=== PATIENT | female | born 1965 | race African-American/Black ===

== ENCOUNTER 2023-07-27 14:52 | Outpatient (AMB) | payer OTHER, SELFPAY ==
[2023-07-27 14:53] VITALS: BP 120/80; PULSE 80; TEMP 36.4; O2SAT 95; BMI 29.7
--- NOTE | 2023-07-27 14:53 | MHC.OFFWIV ---
Intake Vital Signs 07/27/23 14:53 Height 5 ft 6 in Weight 184 lb BMI 29.7 BP 120/80 Blood Pressure Location Lt brachial Position Sitting Pulse 80 Pulse Source Pulse Oximeter Temp 97.5 F Temp Source Temporal Artery Scan Pulse Oximetry (%) 95 Oxygen Delivery Method Room Air Intake Visit Reasons: EP fainted today hit the back of head Intake Note: pt is here today for fainted hit head started today Patient Tobacco Use Status: Never used Tobacco Allergies No Known Allergies Allergy (Verified 07/27/23 14:55) Do you need a note to return to daycare/school/sports/work: Yes HPI HPI Comments History of Present Illness Details The patient presents to urgent care for evaluation after a syncopal event. 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 She then started to feel nauseous and like something was wrong but she could not identify the feeling. She leaned against a metal fence. She was talking to a friend who told her after the fact that her head started to law to 1 side. Her friend reported that she slowly crumpled to the ground the friend cradled her head so she did not hit her head hard on the ground. She regained consciousness immediately and asked why she was on the ground. She did not have any chest pain or shortness of breath prior to the incident. No recent illness. No cardiac issues. Denies leg swelling. No prior history of syncope in the past. [facility], [facility]–1983 Social History Patient Tobacco Use Status: Never used Tobacco Physical Exam Vital Signs: Last Vital Signs Temp 97.5 F 07/27/23 14:53 Pulse 80 07/27/23 14:53 BP 120/80 07/27/23 14:53 Pulse Ox 95 07/27/23 14:53 Oxygen Delivery Method Room Air 07/27/23 14:53 BMI result Body Mass Index 29.7 Const General: healthy appearing and no acute distress Orientation/consciousness: patient oriented x3 HEENT Other: Very small area of soft tissue swelling in the right posterior occipital region. No bony deformity. Minimal tenderness No posterior C-spine midline tenderness Head: Yes normal to inspection and Yes No palpable skull fracture present Eyes Corneas: corneas normal Pupils: Equal, round and reactive pupils present Chest Chest palpation & inspection: no tenderness Resp Effort & Inspection: normal respiratory effort and able to speak in complete sentences Auscultation: clear to auscultation bilaterally Cardio Palpation: normal PMI Rate: regular rate Rhythm: regular rhythm GI Palpation (GI): nontender Neuro General: patient oriented x3 Cranial nerves: Yes Equal, round and reactive pupils present Psych Appearance: grossly normal Attitude: cooperative Assessment & Plan Assessment & Plan (1) Syncope: Code(s): R55 - Syncope and collapse Plan In office fingerstick 115. EKG done. Normal sinus rhythm at 94 beats per minute. No ST T-wave changes to suggest acute ischemia, no ectopy. Patient has a follow-up appointment with PCP and plan for Holter monitor tomorrow. Given that she had the promontory symptoms I suspect more vasovagal syncope versus a cardiac etiology though certainly will need further workup and evaluation. Patient is asymptomatic at this time and I feel she can follow up as planned. If symptoms return in any way she is instructed to go to the emergency department. Coding Level of Care Code Est Pt Level 4 (71860) Diagnoses Syncope R55
== END 2023-07-27 15:53 | disposition home or self-care (01) ==
PROVIDERS: Visit Provider Emergency Medicine
DX: R55 Syncope and collapse (principal)
CPT/HCPCS: 99214

== ENCOUNTER 2023-12-28 08:55 | Outpatient (REF) | payer OTHER, SELFPAY | END 2023-12-28 08:56 | disposition home or self-care (01) | LOC: HO.HOSX 08:55 | PROVIDERS: Visit Provider Orthopaedic Surgery | DX: M25.559 Pain in unspecified hip (principal); M70.62 Trochanteric bursitis, left hip | CPT/HCPCS: 72170; 99202 ==

== ENCOUNTER 2023-12-28 11:02 | Outpatient (AMB) | payer OTHER, SELFPAY ==
[2023-12-28 11:04] VITALS: BMI 29.7
--- NOTE | 2023-12-28 11:04 | A.OFFVIS_ITS ---
Vital Signs 12/28/23 11:04 Height 5 ft 6 in Weight 184 lb BMI 29.7 Intake Visit Reasons: New Patient - Bilateral Hip Pain Intake Note: Daiana is a 58 year old female who presents today as a new patient visit with complaints of bilateral hip pain. Patient reports that the left hip is worse than the right, her pain has been ongoing for about 2 months. The pain is interm ittent, but she is unable to identify any triggers for her pain flair ups. Pain is felt in the groin and the lateral aspect of the hip. She taked Aleve for her pain PRN as well as a topical cream which is helpful. She has no other previous treatments Allergies No Known Allergies Allergy (Verified 12/28/23 11:09) HPI HPI New Patient - Bilateral Hip Pain: Details: Daiana is a 58 year old female who presents today as a new patient visit with complaints of bilateral hip pain. Patient reports that the left hip is worse than the right, her pain has been ongoing for about 2 months. The pain is intermittent, but she is unable to identify any triggers for her pain flair ups. Pain is felt in the groin and the lateral aspect of the hip. She taked Aleve for her pain PRN as well as a topical cream which is helpful. She has no other previous treatments. Currently she has no pain. 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 nl hip radiographs Assessment & Plan Assessment & Plan (1) Greater trochanteric bursitis of left hip: Code(s): M70.62 - Trochanteric bursitis, left hip Category: Medical Plan: This is a 58-year-old woman with left greater trochanteric bursitis who is cur rently asymptomatic. I reviewed the condition and some of the treatment options should pain return. At this time there is no reason she can not begin a exercise program. Orders: Orders XR pelvis 1-2V Today M25.559 - Pain in unspecified hip Coding Level of Care Code New Pt Level 3 (21463) Diagnoses Greater trochanteric bursitis of left hip M70.62
== END 2023-12-28 11:30 | disposition home or self-care (01) ==
PROVIDERS: Visit Provider Orthopaedic Surgery
DX: M70.62 Trochanteric bursitis, left hip (principal)
CPT/HCPCS: 99203

== ENCOUNTER 2024-04-08 14:09 | Outpatient (AMB) | payer OTHER, SELFPAY ==
--- NOTE | 2024-04-08 14:11 | A.OFFVIS_ITS ---
Vital Signs 04/08/24 14:28 Height 5 ft 6 in Weight 190 lb BMI 30.7 Intake Visit Reasons: New prob- B/L knee pain/arthritis Intake Note: This is a 58 year old female who presents for bilateral knee pain. She reports pain consistently with ambulation. She has not done any physical therapy for her knees, she takes aleve and uses voltarin cream for pain relief. She denies any injury. Rn Liaison Required: No Allergies No Known Allergies Allergy (Verified 04/08/24 14:30) Medication List - Last Reconciled 04/08/24 by Jenifer Johnson RN alendronate 70 mg PO QWEEK HPI HPI New prob- B/L knee pain/arthritis: Details: This is a 58-year-old woman with bilateral knee pain. She has pain in the inside of the knees and when going up and down stairs. Her primary complaint, in fact, is pain when ascending and descending stairs. She denies injury. She saw a surgeon about this about 7 years ago and was told she had [id number] arthritis. Her goal today is to no or understand if activity is going to worsened her knees as the only real problem she has a stairs and walking on flat ground does not currently bother her. 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 She has 0-125 degrees of motion bilaterally. Stable to varus and valgus stress. Tenderness to palpation medial joint line bilaterally. Crepitus with range of motion bilaterally. Retropatellar tenderness to palpation bilaterally Results Reviewed Results Reviewed: I personally reviewed relevant radiographs. Moderate medial and severe anterior compartment osteoarthritis bilaterally Assessment & Plan Assessment & Plan (1) Bilateral primary osteoarthritis of knee: Code(s): M17.0 - Bilateral primary osteoarthritis of knee Category: Medical Plan: This is a 58-year-old with bilateral knee osteoarthritis. She is very functional and her primary complaint is going up and down stairs. I do not think this would be reliably resolve with arthroplasty and do not recommend surgery. I reviewed her pathology and treatment options. I recommend activity as tolerated and lifestyle modifications for weight and working out. She expressed understanding and we will see me if her pain worsens but at this time there is no of formal intervention warranted. Orders: Orders XR knee LT 3V Today M25.562 - Pain in left knee XR knee RT 3V Today M25.561 - Pain in right knee Coding Level of Care Code Est Pt Level 3 (20212) Diagnoses Bilateral primary osteoarthritis of knee M17.0
[2024-04-08 14:28] VITALS: BMI 30.7
== END 2024-04-08 15:02 | disposition home or self-care (01) ==
PROVIDERS: Visit Provider Orthopaedic Surgery
DX: M17.0 Bilateral primary osteoarthritis of knee (principal)
CPT/HCPCS: 99213

== ENCOUNTER 2024-10-24 10:46 | Outpatient (REF) | payer OTHER, SELFPAY ==
--- NOTE | ~2024-10-24 | XR_ITS ---
EXAMINATION: XR SHOULDER, RIGHT CLINICAL INFORMATION: M25.519 - Pain in unspecified shoulder COMPARISON: None available. TECHNIQUE: Three views of the right shoulder. FINDINGS: Normal bone mineralization. No fracture, dislocation, or suspicious bone lesion. Normal alignment. The glenohumeral joint is normal. The AC joint demonstrates minimal spurring. There is a type II acromion. There are is mild undersurface spurring. The subacromial space is preserved. Remainder of the soft tissue and bony structures appear normal. XR/XR shoulder RT min 2V IMPRESSION: 1. No acute bony abnormalities of the right shoulder. 2. Normal glenohumeral joint. 3. Mild spurring of the AC joint and mild subacromial spurring present. Electronically signed by: William Castillo MD 10/24/2024 02:28 PM EDT
--- OUTSIDE RECORDS SUMMARY | 2024-10-25 10:48 | XMS_ITS | Clinical Summary ---
Author Organization [facility] Address [address] [place] [address] Phone Care Team Providers Care Merchandise Presentation Associate Name Role Phone Mike Ellison Primary Care Provider [phone] Allergies No known active allergies Medications alendronate (FOSAMAX) 70 mg tablet Take 1 tablet (70 mg total) by mouth once a week. Active cetirizine (ZyrTEC) 10 mg tablet Active calcium-vits J1-A-G6-mineral s 166.75 mg- 166.75 unit capsule Active [...] Description 10/14/2024 10:45 AM EDT Office Visit [facility] Hematology Oncology [address] [place] [address] Glen Diaz, Malignant neoplasm of central portion of left breast in female, estrogen receptor positive (CMS/HCC V24, CMS/HCC V28) (Primary Dx) 07/25/2024 Telephone [facility] [address] [place] [address] Mike Ellison PA from Last [...] Description 04/28/2025 10:00 AM EST Office Visit [facility] Hematology Oncology [address] [place] [phone] Glen Diazie, DO [address] [place] [address] Health Maintenance Due Date Last Done Comments [...] Routine 04/11/2024 10:15 AM EST Screening due IGA DEXA AXIAL SKELETON Routine 04/10/2023 11:07 AM [...] Signed Date: 04/11/2024 12:31 ET Workstation ID: [id number] Transcribed By: Self Edit Transcribed Date: 04/11/2024 [...] None Computer-aided detection was employed with the [employer] AI 3-D. TISSUE DENSITY: There are scattered [...] None Computer-aided detection was employed with the [employer] AI 3-D. TISSUE DENSITY: There are scattered [...] Signed Date: 04/11/2024 12:31 ET Workstation ID: [id number] Transcribed By: Self Edit Transcribed Date: 04/11/2024 12:23 ET us Glen Diaz DO IMG BI PROCEDURES Fin al Result * GIA DEXA AXIAL SKELETON (04/10/2023 11:07 AM EST) Anatomical Region Laterality Modality Mammography 04/10/2023 10:0 1 AM EST Narrative 04/10/2023 11:07 AM EST [facility] Diagnostic Imaging Department [address] [place] [address] Patient: DAIANA SUBRAMANIAN D.O.B./Age/Sex: 1965 57 - F Unit#: [id number] Location/Status: SPDIMAM/REG CLI [facility] Ordering Physician: GLEN DIAZ Gia Dexa Axial [...] probability of hip fracture of 0.1%. Code 42634 Dictating Physician: MICHAEL CANTOR MD Electronically Signed by: MICHAEL CANTOR MD Dic Date/Time: 04/10/23 1105 Sign date/Time: 04/10/23 110 Procedure Note Michael Cantor MD - 11/06/2023 [facility] Diagnostic Imaging Department [address] [place] [address] Patient: DAIANA SUBRAMANIAN/Age/Sex: 1965 - 57 - F Unit#: [id number] Location/Status: SPDIMAM/REG CLI Mnemonic/Ordering Site: [facility] Ordering [...] density of the femurs bilaterally is 0.977 gm/uo1zilsx is 97% of that of young normals [...] probability of hip fracture of 0.1%. Code 99492 Dictating Physician: MICHAEL CANTOR MD Electronically Signed by: MICHAEL CANTOR MD Dic Date/Time: 04/10/23 110 Sign date/Time: 04/10/23 110 us Glen Diaz [...] Relevant to Health Maintenance Insurance [employer]AN Care Teams Merchandise Presentation Associate Relationship Specialty Start Date End Date Mike Ellison PA [address] [place] [phone] PCP - General 08/15/23
--- OUTSIDE RECORDS SUMMARY | 2024-10-25 10:48 | XMS_ITS | Clinical Summary ---
Author Organization [facility] Address [address] [place] [address] Care Team Providers Care Microbiology Lab Manager Name Role Phone Mike Ellison Primary Care Provider [phone] Source Comments PLEASE NOTE, if this patient is a minor, it may be UNLAWFUL to discuss sensitive information that is contained in these records (such as FAMILY PLANNING, MENTAL HEALTH or SUBSTANCE ABUSE) with the minor patient's parent or other person without the patient's specific authorization.[facility] Allergies Active Allergy Reactions Criticality Noted Date Comments Apples 05/24/2021 Peaches 05/24/2021 Pollen 05/24/2021 Medications calcium-vits I8-G-X7-minerals 166.75 mg- 166.75 unit cap Acti ve cetirizine (ZYRTEC) 10 mg tablet Active rjfzjgyl-hqs-nth n-FA-lutein (CENTRUM SILVER WOMEN) 8 mg iron-400 [...] for years . Annual Mamms, followed by Assistant Reading Teacher. Malignant neoplasm of centra l portion of breast in female, estrogen receptor positive ([facility]) 04/03/2017 Overview (01/03/2019): 03/24/17, Mike Ellison PA-C, noted. - 06/28/18 tested BRCA neg. - 04/03/18, [facility] Oncology report, Jack Sandoval MD, HPI: Clinically [...] 04/10/2016 Overview (04/10/2016): Right foot done at [facility] on 03/25/16 History of mammogram 04/10/2016 Overview (04/10/2016): 08-07-15: stable assymetry should return for mammogram cycle with bilat study in 6 months. Prediabetes 01/04/2016 History of abnormal mammogram 02/05/2015 Overview (04/10/2016): [facility] 01/28/15. Questionable 8mm asymmetry in the anterior third of the right breast. F/U recommended in 6 mo. Due 08/03/1416: normal mammogram Breast cancer ([facility]) Overview (01/03/2019): 07/29/14, She Jett DNP: Cancer free x 10 years Oncologist Jack Owen Osteopenia Overview (01/03/2019): [facility] Bone scan 01/28/15- 1.9% 10 year probability of fracture 02/19/18, [facility] DEXA Axial skeleton, [facility],Impression: 1. 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 PAP See Note [facility] Comment:NONE GIVEN PREV. BX See Note [facility] Comment:NONE GIVEN SOURCE See Note [facility] Comment:Cervix STATEMENT OF ADEQUACY See Note [facility] Comment: Satisfactory for evaluation. Endocervical/transformation zone component present. INTERPRETATION/RESU LT See Note [facility] Comment: Cytology Results: Negative for intraepithelial lesion or malignancy. COMMENT See Note [facility] Comment: This Pap test has been evaluated with computer assisted technology. HEAD MILLER See Note [facility] Comment: MSM, CT(ASCP) CT screening location: [address] [address] COMMENT [facility] HPV MRNA E6/E7 Not Detected Not Detected [facility] Comment: Methodology: Lift Builder Whole-Mediated Amplification This assay detects E6/E7 viral messenger RNA (mRNA) from 14 high-risk HPV types (16,18,31,33,35,39,45,51,52,56,58,59,66,68). Cervical sources are required for HPV testing. If a vaginal source from a patient who has had a total hysterectomy with removal of cervix was submitted, please contact the testing laboratory for alternative testing options. For additional information, please refer to http://education.Intelligize.Technimark/faq/QLD116c2 (This link if provided for information/ educational purposes only.) Swab Cervix uteri structure / Unknown 12/08/2023 11:37 AM EDT 12/11/2023 6:14 AM EDT Narrative [facility] - 12/12/2023 11:13 AM EDT EXPLANATORY NOTE: [...] PATHOLOGY AND CYTOLOGY AM BULATORY Final Result [facility] [address] [place] [address], [facility] [address] [address] * (ABNORMAL) HEMOGLOBIN GLYCOSYLATED A1C (07/29/2023 10:16 AM EDT) HEMOGLOBIN A1C 6.0(H) <5.7 % of total Hgb [facility] Comment: For someone without known diabetes, a [...] AM EDT 07/29/2023 10:16 AM EDT Narrative [facility] [employer] [facility] - 08/01/2023 2:54 AM EDT FASTING:YES Katarzyna PATRICK LAB - BLOOD DRAW Final Result Performing Organization Address City/[facility]/ZIP Co de Phone Number [facility] [address] [address], [facility] [address] [address] * HISTORIC DEXA SCAN (04/10/2023 3:00 AM EST) 04/10/2023 3:00 AM EST Mike PATRICK IMG DXA Final Result * (ABNORMAL) LIPID PANEL (07/01/2022 11:06 AM EDT) CHOLESTEROL, TOTAL 220(H) <200 mg/dL [facility] HDL CHOLESTEROL 76 > OR = 50 mg/dL [facility] TRIGLYCERIDES 56 <150 mg/dL [facility] LDL-CHOLESTEROL 129(H) 99 mg/dL (calc) [facility] Comment: Reference range: <100 Desirable range <100 mg/dL for primary prevention; <70 mg/dL for patients with CHD or diabetic patients with > or = 2 CHD risk factors. LDL-C is now calculated using the Ashok-Walker calculation, which is a validated novel method providing better accuracy than the Friedewald equation in the estimation of LDL-C. Ashok SS et al. FAUSTINA. 2013;310(19): 0056-2402 (http://education.Lastline/faq/HXC788) CHOL/HDLC RATIO 2.9 <5.0 (calc) [facility] NON-HDL CHOLESTEROL 144(H) <130 mg/dL (calc) [facility] Comment: For patients with diabetes plus 1 major ASCVD risk factor, treating to a non-HDL-C goal of <100 mg/dL (LDL-C of <70 mg/dL) is considered a therapeutic option. Blood Blood / Unknown 07/01/2022 1 1:06 AM EDT 07/01/2022 11:06 AM EDT Vinny Negrete [facility] - BLOOD DRAW Final Re sult [facility] [address] [address], [facility] [address] [place] [address] * PAP SMEAR W/HPV (06/26/2018) PAP SMEAR INTERPRETATION NORMAL NORMAL [facility] HPV (HUMAN PAPILLOMA) NEGATIVE NEGATIVE [facility] 06/26/2018 Impressions [facility] - 06/28/2018 Thinprep pap: Negative for squamous intraepithelial lesion and malignancy HPV: negative us Provider [facility] - PATHOLOGY AND CYTOLOGY AMB ULATORY Final Result [facility] [address] [place] [address], * (ABNORMAL) HEPATITIS A,B,C PANEL (06/14/2018 10:30 AM EDT) HEPATITIS B SURFACE ANTIBODY POSITIVE(A) NEGATIVE [facility] HEPATITIS B SURFACE ANTIGEN NEGATIVE NEGATIVE [facility] Comment: Over the counter supplements containing high doses of biotin may interfere with this assay. If interference is suspected, patients shoud be retested after refraining from biotin supplements for 72 hours. HEPATITIS C VIRUS DIAGNOSTIC NEGATIVE NEGATIVE [facility] HEPATITIS A ANTIBODY TOTAL POSITIVE(A) NEGATIVE [facility] Comment: Over the counter supplements containing high doses of biotin may interfere with this assay. If interference is suspected, patients shoud be retested after refraining from biotin supplements for 72 hours. HEPATITIS B CORE ANTIBODY NEGATIVE NEGATIVE [facility] Blood specimen (specimen) Blood / Unknown 06/14/2018 10:30 AM EDT 06/14/2018 11:16 AM EDT Narrative [facility] - 06/14/2018 2:05 PM EDT Effective Measure, a member of [facility] [address] [place] [address] Tower Loader Operator - Betty Guaman MD PT ID [id number] ORD# [id number] Mike PATRICK [facility] - BLOOD DRAW Edited Result - Final [facility] [address] [place] [address], from Last 3 Months or Most Recently Relevant to Health Maintenance Insurance [employer] Member Subscriber Plan / Payer (Ef fective 2016-Present) Name:Daiana Rodriguez Relation to Subscriber:Self Name:Daiana Rodriguez Payer ID:[id number] Type:Indemnity Address: [address] [address] [place] [address] GENERIC - [employer] Care Teams Microbiology Lab Manager Relationship Specialty Start Date End Date Mike Ellison PA [address] [place] [address] PCP - General Internal Medicine 09/23/16
--- OUTSIDE RECORDS SUMMARY | 2024-10-25 10:48 | XMS_ITS | Clinical Summary ---
Author Organization [facility] Address [address] [place] [address] Care Team Providers Care Fire Management Officer Name Role Phone Mike Ellison Primary [...] age to complete this topic Care Teams Fire Management Officer Relationship Specialty Start Date End Date Mike Ellison PA [facility] [place] [address] PCP - General Physician Good Humor Vendor 04/03/19
== END 2024-10-24 10:47 | disposition home or self-care (01) ==
LOC: HO.HOSX 10:46
PROVIDERS: Visit Provider Physician Assistant
DX: M75.101 Unspecified rotator cuff tear or rupture of right shoulder, not specified as traumatic (principal); M25.511 Pain in right shoulder
CPT/HCPCS: 20610; 73030; 99212; J1010; J2003

== ENCOUNTER 2024-10-24 13:58 | Outpatient (AMB) | payer OTHER, SELFPAY ==
--- NOTE | 2024-10-24 14:07 | MHC.OFFVIS ---
Vital Signs 10/24/24 14:15 Height 5 ft 6 in Weight 190 lb BMI 30.7 Handedness Right Intake Visit Reasons: New prob- Right shoulder pain Intake Note: Daiana is a 59year old right hand dominant female who presents today for a evaluation of her right shoulder pain. patient reports ongoing pain for about 2 - 3 months. She states that her pain is on the posterior aspect of the shoulder and radiates up to her shoulder blade. She ranks her pain a 6 or 7 out of 10. 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 She has tried taking Aleve and it gives her mild relief. Allergies No Known Allergies Allergy (Verified 10/24/24 14:12) HPI HPI New prob- Right shoulder pain: Details: Ms. Rodriguez is a 59-year-old right-hand dominant female who presents to the office today for evaluation of right shoulder pain. She reports the pain has been present for the past 2-3 months. She denies any injury or trauma to the area. She reports the pain is located over the posterolateral aspect of the right shoulder. She reports the pain worsens with overhead motions. She has tried oral anti-inflammatories [id number] with minimal relief. 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 Able to reach back pocket. External rotation to end range.. Positive cross-body reach. 4/5 empty can. Negative drop arm. NVI. Psych Appearance: grossly normal Mental Status: mental status grossly normal Attitude: cooperative Office Procedures AMB Joint Injection/Aspiration Joint Injection/Aspiration Primary Site: right shoulder Prep: site was prepped using aseptic technique, ethochloride spray was applied and injection warnings given Injected: 80 mg of, DepoMedrol, with 8 mL of (2% plain lidocaine) and in the subcromial space Approach Used: posterolateral Procedure: The patient tolerated the procedure well, but had some pain with the injection and there was some relief with the local anesthesia Coding - Large joint Procedure code (CPT) selection complete Assessment & Plan Assessment & Plan (1) Painful arc syndrome of right shoulder: Code(s): M75.101 - Unspecified rotator cuff tear or rupture of right shoulder, not specified as traumatic Category: Medical Plan Ms. Rodriguez is a 59-year-old right-hand dominant female who presents to the office today for evaluation of right shoulder pain. She reports the pain has been present for the past 2-3 months. She denies any injury or trauma to the area. She reports the pain is located over the posterolateral aspect of the right shoulder. She reports the pain worsens with overhead motions. She has tried oral anti-inflammatories [id number] with minimal relief. The patient was offered a cortisone injection in the right shoulder with 80 mg of DepoMedrol. The patient was explained the risks, benefits, and alternatives to receiving this injection. After receiving consent for the injection, the patient had the procedure done while in the office today. The patient tolerated the procedure well with no complications. Additionally, I offered the patient physical therapy in which she is amenable to attend. I provided the patient with the physical therapy business card in order to reach out and make an appointment. Follow-up will be PRN, or sooner if needed. X-rays of the right shoulder which were obtained while in the office today and were reviewed by me, Bernadine Alfonso PA-C, revealed downsloping acromion. Orders: Orders XR shoulder RT min 2V Today M25.519 - Pain in unspecified shoulder Coding Level of Care Code Est Pt Level 3 (15158) Diagnoses Painful arc syndrome of right shoulder M75.101 CPT Codes Coding - Large joint: 52501 - Large joint ([id number])
--- OUTSIDE RECORDS SUMMARY | 2024-10-24 14:09 | XMS_ITS | Clinical Summary ---
Author Organization [facility] Address [address] [place] [address] Care Team Providers Care Chief Diversity Officer Name Role Phone Mike Ellison Primary Care Provider [phone] Source Comments PLEASE NOTE, if this patient is a minor, it may be UNLAWFUL to discuss sensitive information that is contained in these records (such as FAMILY PLANNING, MENTAL HEALTH or SUBSTANCE ABUSE) with the minor patient's parent or other person without the patient's specific authorization.[facility] Allergies Active Allergy Reactions Criticality Noted Date Comments Apples 05/24/2021 Peaches 05/24/2021 Pollen 05/24/2021 Medications calcium-vits A8-T-R5-minerals 166.75 mg- 166.75 unit cap Acti ve cetirizine (ZYRTEC) 10 mg tablet Active kqlbjhfb-jmq-exo n-FA-lutein (CENTRUM SILVER WOMEN) 8 mg iron-400 mcg-300 mcg tab Active diclofenac sodium (VOLTAREN) 1 % gelIndications:C hronic pain of both knees APPLY 2 G TOPICALLY 2 (TWO) TIMES DAILY. 100 g 2 4 Active triamcinolone (KENALOG) 0.1 % ointment Apply 1 Application topically 2 (two) times daily 4 Active clotrimazole-bet amethasone (LOTRISONE) 1-0.05 % creamIndications :Pruritus of skin Apply topically 2 (two) times daily 15 g 4 Active alendronate (FOSAMAX) 70 mg tabletIndication s:Age-related osteoporosis without current pathological fracture TAKE 1 TABLET BY MOUTH EVERY 7 DAYS. 12 Tablet 2 5 Active Active Problems Patient Care Coordination No te Formatting of this note migh t be different from the original. Pre Visit Plan, 01/03/19, for Mike Hunt PA-C patient in for Constipation. Amaris Yeung. 06/28/18, Last Office Visit for Lipid eval Problem Noted Date Diagnosed Date Osteoporosis 04/14/2021 Urinary incontinence in female 01/03/2019 BRCA gene mutation negative in female 06/28/2018 Overview (01/03/2019): 06/28/18, per pt when discussing H/o breast CA, in remission for years . Annual Mamms, followed by [facility] [employer] [facility]. Malignant neoplasm of centra l portion of breast in female, estrogen receptor positive ([facility]) 04/03/2017 Overview (01/03/2019): 03/24/17, Mike Ellison PA-C, noted. - 06/28/18 tested BRCA neg. - 04/03/18, [facility] Oncology report, Jack Sandoval MD, HPI: Clinically doing well, has completed prior therapy and is now on course of observation. Has bone density which shows evidence of osteopenia with normal Vit DOriginal Diagnosis of breast cancer dates back to 02/2004 infiltrating ductal carcinoma of (L) breast grade 2. Associated DCIS patient subsequently Tx'ed for T1 BN one a HER-2 positive ER positive carcinoma the breast s/p ACTH temoxifen nephrectomy and subsequent letrozole. Had prior Tx w/ prolia. PLAN: Stable from standpoint of Breast CA. Off hormonal therapy. Bone density osteopenia w/ some decreased from prior study. Has f/u with endo. Check vit D here w/ mamm at next visit. Annual f/u's. 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 Prediabetes 01/04/2016 History of abnormal mammogram 02/05/2015 Overview (04/10/2016): [facility] 01/28/15. Questionable 8mm asymmetry in the anterior third of the right breast. F/U recommended in 6 mo. Due 08/03/1416: normal mammogram Breast cancer ([facility]) Overview (01/03/2019): 07/29/14, She Jett DNP: Cancer free x 10 years Oncologist Jack Owen Osteopenia Overview (01/03/2019): [facility] Bone scan 01/28/15- 1.9% 10 year probability of fracture 02/19/18, [facility]EXA Axial skeleton, [facility],Impression: 1. Ostopenia - there has been a decrease of 12.2% in bone mineral density in the L-spine since prior exam of 02/14/17. There has been a decrease of 2.9% in bone mineral density in the (R) femur and an increase of 5.2% in bone mineral density in the (L) femur. 2. FRAX analysis yields a 10-year probability of major osteoporotic Fx of2.2% and a 10- yearprobability of hip Fx of0.0%. Immunizations Immunization Administration Dates Next Due Flu, Cell Culture based, Pre servative Free, 6m+, Flucelvax 03/27/2019 Flu, Preservative Free 03/02/2022,2020,11/27/2019,2016 HEP A-HEP B ([place]) 12/16/2016,09/26/2016 Hep B, Adult/Adol (HAMLNCZ-O-DVUNE/RECOMBIVAX-ADULT) 06/12/2018 INFLUENZA, SEASONAL, INJECTABLE 01/04/2016,11/10 PPD 06/12/2018,09/26/2016,10/13/2014 TDAP 01/04/2016 ZOSTER VACCINE, RECOMBINANT ([place]X) 05/24/2021,03/19/2021 Family History Medical History Relation Name Comments Diabetes Father Hypertension Father Diabetes Mother Hypertension Mother Osteoarthritis Mother Other (See Comments) Mother Sarcado sis Cancer Other 1 cousin breast Cancer Other 2 paternal cousin breast Cancer Paternal Aunt 1 breast Cancer Paternal Aunt 2 ovarian Cancer Paternal Grandmother ovarian Relation Name Status Comments Father Mother Other 1 Other 2 Paternal Aunt 1 Paternal Aunt 2 Paternal Grandmother Social History Tobacco Use Types Packs/Day Years Used Date Smoking Tobacco: Never Smokeless Tobacco: Never Tobacco Cessation:Counseling Given: Not Answered Alcohol Use Standard Drinks/Week Comments Yes 3 (1 standard drink = 0.6 oz pur e alcohol) Social Connections Answer Date Recorded Connectedness 1 07/10/2023 Financial Resource Strain Answer Date R ecorded Financial Resource Strain 1 2023 Stress Answer Date Recorded Stress 1 07/10/2023 Physical Activity Answer Date Recorded Physical Activity 0 11/11/2018 Food Insecurity Answer Date Recorded Food 1 07/10/2023 Transportation Needs Answer Date Record ed Transportation 1 07/10/2023 Housing Stability Answer Date Recorded Housing 1 07/10/2023 Safety and Environment Answer Date Dominic rded Safety 1 07/10/2023 Utilities Answer Date Recorded Utilities 1 07/10/2023 Employment Answer Date Recorded Stress 0 06/07/2021 Comments No Sex and Gender Information Value Date Recorded Sex Assigned at Female 01/05/2017 7:53 AM PDT Legal Sex Female 6:50 AM PDT Gender Identity Female 01/05/2017 7:53 AM PDT Sexual Orientation Straight 01/05/2017 7: 53 AM PDT 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 file Not on file Not on bobby [employer] 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 Not on file Not on file Not on file Last Filed Vital Signs Vital Sign Reading Time Taken Comments Blood Pressure 109/71 12/08/2023 11:26 AM EDT Pulse 65 12/08/2023 11:26 AM EDT Temperature 36.9 C (98.4 F) 12/05/2023 5:03 PM EDT Respiratory Rate 16 12/08/2023 11:26 AM EDT Oxygen Saturation 98% 12/05/2023 5:03 PM EDT Inhaled Oxygen Concentration - - Weight 83.5 kg (184 lb) 12/08/2023 11:26 AM EDT Height 167.6 cm (5' 6 ) 12/08/2023 11:26 AM EDT Body Mass Index 29.7 12/08/2023 11:26 AM EDT Plan of Treatment Health Maintenance Due Date Last Done Comments Anxiety Screening [address] Colonography 08/08/2008 Colonoscopy 08/08/2008 Fecal DNA 08/08/2008 Flexible Sigmoidoscopy 08/08/2008 Imm-Pneumococcal 50+ (1 of 1 - PCV) 08/08/2013 Colorectal Cancer Screening 06/12/2020 FIT/gFOBT 06/12/2020 06/12/2018 (Ce ged by Outside Provider), 01/04/2016, 11/10/2014 HPV Screening 06/27/2023 06/26/2018 [id number] ( season) 2023 03/06/2023, 03/08/2022, 10/25/2021, Additional history exists Diabetes Screening 01/29/2024 07/29/2023, 0 07/29/2023, 07/11/2023, Additional history exists Alcohol and Drug Screen 03/20/2024 07/28/19 24, 07/10/2023, 07/01/2022, Additional history exists Depression Annual Screen 03/20/2024 024, 07/10/2023, 11/27/2019, Additional history exists Annual Wellness (Adult): Indicated (All Coverage) 09/25/2024 09/26/2023, 07/01/2022, 11/27/2019, Additional history exists Imm-Influenza (#1) 2024 03/06/2023, 1 05/03/2021, 12/04/2020, Additional history exists Hypertension Screening (#1) 12/07/2024 Tobacco Screening 12/07/2024 12/08/2023, 01/05/2017 Breast Cancer Screening (Mammogram) 04/11/2025 04/11/2024, 04/10/2023, 04/07/2022, Additional history exists Imm-DTaP/Tdap/Td (2 - Td or Tdap) 01/03/2026 016 Pap Smear 12/07/2026 12/08/2023, 04/0 11/2018, 06/12/2018, Additional history exists Lipid Screening 07/02/2027 07/01/2022, 06/18, 09/07/2021, Additional history exists Cervical Cancer Screening 12/07/2028 Pap + HPV 12/07/2028 12/08/2023, 06/26/2018 HIV Screening Completed 06/12/2018 Imm-Hepatitis B Discontinued 06/12/2018, 11/19, 09/26/2016 Hepatitis C Screening Completed 06/14/2018, 017 Imm-Zoster, Recombinant Completed 05/24/2021, 03/19 Bone Density Screening Completed , 04/10/2023, 04/05/2021, Additional history exists Cervical Ablation/Cold-Knife Conization Discontinued Cervical Cryotherapy Discontinued Colposcopy Discontinued Endometrial Biopsy Discontinued Excision/Leep Discontinued HPV Genotyping Discontinued Vaginal Pap Discontinued Vulvoscopy Discontinued Goals Goal Patient Goal Type Associated Problems Recent Progress Patient-Stated? Author Increase physical activity Exercise Not on track( 016 3:20 PM PST) Natalie Moreno Note: Action Plan (Complete all applicable questions) What are you going to do to achieve your goal? Increase PA by using Wii Fit When and how often? During lunch time, 2 times/week Where? Home How long or how much? 30 minutes Start Date? 01/26/2016 Confidence Level: (If below a 7, modify plan to increase confidence) On a scale from 0-10, how sure are you that you can complete this plan?8 Barriers: Address barriers as needed(view Barriers section) Procedures Procedure Name Priority Date/Time Associated Diagnosis Comments HISTORIC MAMMOGRAM 04/11/2024 3: 00 AM EST THIN PREP IMAGE PAP + HPV RNA E6/E7 W/RFLX HPV 16, 18/45 Routine 12/08/2023 11:37 AM EDT Screening for HPV (human papillomavirus) HEMOGLOBIN GLYCOSYLATED A1C Routine 07/29/2023 10:16 AM EDT Syncope, unspecified syncope type HISTORIC DEXA SCAN 04/10/2023 3: 00 AM EST LIPID PANEL Routine 07/01/2022 11:06 AM EDT Chronic pain of both knees PAP SMEAR W/HPV, ABSTRACTED Routine 06/26/2018 HEPATITIS A,B,C PANEL Routine 06/14/2018 10:30 AM EDT Routine adult health maintenance from Last 3 Months or Most Recently Relevant to Health Maintenance Results * HISTORIC MAMMOGRAM (04/11/2024 3:00 AM EST) 04/11/2024 3:00 AM EST Mike PATRICK IM MAMMO Final Result * THIN PREP IMAGE PAP + HPV RNA E6/E7 W/RFLX HPV 16, 18/45 (12/08/2023 11:37 AM EDT) CLINICAL INFORMATION See Note [employer] Comment:Postmenopausal LMP See Note [employer] Comment:NONE GIVEN PREV. PAP See Note [employer] Comment:NONE GIVEN PREV. BX See Note [employer] Comment:NONE GIVEN SOURCE See Note [employer] Comment:Cervix STATEMENT OF ADEQUACY See Note [employer] Comment: Satisfactory for evaluation. Endocervical/transformation zone component present. INTERPRETATION/RESU LT See Note [employer] Comment: Cytology Results: Negative for intraepithelial lesion or malignancy. COMMENT See Note [employer] Comment: This Pap test has been evaluated with computer assisted technology. ASP WEB DEVELOPER See Note [facility] Comment: MSM, CT(ASCP) CT screening location: [address] [address] COMMENT [facility] HPV MRNA E6/E7 Not Detected Not Detected [employer] Comment: Methodology: Software Development Analyst-Mediated Amplification This assay detects E6/E7 viral messenger RNA (mRNA) from 14 high-risk HPV types (16,18,31,33,35,39,45,51,52,56,58,59,66,68). Cervical sources are required for HPV testing. If a vaginal source from a patient who has had a total hysterectomy with removal of cervix was submitted, please contact the testing laboratory for alternative testing options. For additional information, please refer to http://education.[employer].Choisr/faq/YOI744i3 (This link if provided for information/ educational purposes only.) Swab Cervix uteri structure / Unknown 12/08/2023 11:37 AM EDT 12/11/2023 6:14 AM EDT Narrative [facility] - 12/12/2023 11:13 AM EDT EXPLANATORY NOTE: The Pap is a screening test for cervical cancer. It is not a diagnostic test and is subject to false negative and false positive results. It is most reliable when a satisfactory sample, regularly obtained, is submitted with relevant clinical findings and history, and when the Pap result is evaluated along with historic and current clinical information. Sammy King MD LAB - PATHOLOGY AND CYTOLOGY AM BULATORY Final Result [facility] [address] [place] [id number], [facility] [address] [address] * (ABNORMAL) HEMOGLOBIN GLYCOSYLATED A1C (07/29/2023 10:16 AM EDT) HEMOGLOBIN A1C 6.0(H) <5.7 % of total Hgb [facility] Comment: For someone without known diabetes, a hemoglobin A1c value between 5.7% and 6.4% is consistent with prediabetes and should be confirmed with a follow-up test. For someone with known diabetes, a value <7% indicates that their diabetes is well controlled. A1c targets should be individualized based on duration of diabetes, age, comorbid conditions, and other considerations. This assay result is consistent with an increased risk of diabetes. Currently, no consensus exists regarding use of hemoglobin A1c for diagnosis of diabetes for children. Blood Blood / Unknown 07/29/2023 1 0:16 AM EDT 07/29/2023 10:16 AM EDT Narrative [facility] - 08/01/2023 2:54 AM EDT FASTING:YES Katarzyna PATRICK LAB - BLOOD DRAW Final Result Performing Organization Address City/[facility]/ZIP Co de Phone Number [facility] [address] [address], [facility] [address] [address] * HISTORIC DEXA SCAN (04/10/2023 3:00 AM EST) 04/10/2023 3:00 AM EST Mike PATRICK IMG DXA Final Result * (ABNORMAL) LIPID PANEL (07/01/2022 11:06 AM EDT) CHOLESTEROL, TOTAL 220(H) <200 mg/dL [facility] HDL CHOLESTEROL 76 > OR = 50 mg/dL [facility] TRIGLYCERIDES 56 <150 mg/dL [facility] LDL-CHOLESTEROL 129(H) 99 mg/dL (calc) [facility] Comment: Reference range: <100 Desirable range <100 mg/dL for primary prevention; <70 mg/dL for patients with CHD or diabetic patients with > or = 2 CHD risk factors. LDL-C is now calculated using the Ashok-Walker calculation, which is a validated novel method providing better accuracy than the Friedewald equation in the estimation of LDL-C. Ashok SS et al. FAUSTINA. 2013;310(19): 1057-0260 (http://education.[employer]/faq/SCE136) CHOL/HDLC RATIO 2.9 <5.0 (calc) [facility] NON-HDL CHOLESTEROL 144(H) <130 mg/dL (calc) [facility] Comment: For patients with diabetes plus 1 major ASCVD risk factor, treating to a non-HDL-C goal of <100 mg/dL (LDL-C of <70 mg/dL) is considered a therapeutic option. Blood Blood / Unknown 07/01/2022 1 1:06 AM EDT 07/01/2022 11:06 AM EDT Vinny Negrete RADIOLOGY MANAGER-C LAB - BLOOD DRAW Final Re sult [facility] [address] [address], [facility] [address] [place] [address] * PAP SMEAR W/HPV (06/26/2018) PAP SMEAR INTERPRETATION NORMAL NORMAL [facility] HPV (HUMAN PAPILLOMA) NEGATIVE NEGATIVE [facility] 06/26/2018 Impressions [facility] - 06/28/2018 Thinprep pap: Negative for squamous intraepithelial lesion and malignancy HPV: negative us Provider [facility] LAB - PATHOLOGY AND CYTOLOGY AMB ULATORY Final Result [facility] [address] [place] [address], * (ABNORMAL) HEPATITIS A,B,C PANEL (06/14/2018 10:30 AM EDT) HEPATITIS B SURFACE ANTIBODY POSITIVE(A) NEGATIVE [facility] HEPATITIS B SURFACE ANTIGEN NEGATIVE NEGATIVE [facility] Comment: Over the counter supplements containing high doses of biotin may interfere with this assay. If interference is suspected, patients shoud be retested after refraining from biotin supplements for 72 hours. HEPATITIS C VIRUS DIAGNOSTIC NEGATIVE NEGATIVE [facility] HEPATITIS A ANTIBODY TOTAL POSITIVE(A) NEGATIVE [facility] Comment: Over the counter supplements containing high doses of biotin may interfere with this assay. If interference is suspected, patients shoud be retested after refraining from biotin supplements for 72 hours. HEPATITIS B CORE ANTIBODY NEGATIVE NEGATIVE [facility] Blood specimen (specimen) Blood / Unknown 06/14/2018 10:30 AM EDT 06/14/2018 11:16 AM EDT Narrative [facility] - 06/14/2018 2:05 PM EDT [employer], a member of [facility] [address] [place] [address] Balance Clerk - Betty Guaman MD PT ID [id number] ORD# [id number] Mike PATRICK LAB - BLOOD DRAW Edited Result - Final [facility] [address] [place] [address], from Last 3 Months or Most Recently Relevant to Health Maintenance Insurance [employer] Member Subscriber Plan / Payer (Ef fective 2016-Present) Name:Daiana Rodriguez Relation to Subscriber:Self Name:Daiana Rodriguez Payer ID:[id number] Type:Indemnity Address: [address] [address] [place] [address] GENERIC - [employer] Care Teams Chief Diversity Officer Relationship Specialty Start Date End Date Mike Ellison PA [address] [place] [address] PCP - General Internal Medicine 09/23/16
--- OUTSIDE RECORDS SUMMARY | 2024-10-24 14:09 | XMS_ITS | Clinical Summary ---
Author Organization [facility] Address [address] [place] [address] Phone Care Team Providers Care Supervisor Road Administrator Name Role Phone Mike Ellison Primary Care Provider [phone] Allergies No known active allergies Medications alendronate (FOSAMAX) 70 mg tablet Take 1 tablet (70 mg total) by mouth once a week. Active cetirizine (ZyrTEC) 10 mg tablet Active calcium-vits X6-L-V5-mineral s 166.75 mg- 166.75 unit capsule Active multivit-min/ir on/FA/vit K/lut (CENTRUM SILVER WOMEN ORAL) Take by mouth. Act tuyet ascorbic acid (VITAMIN C) 1,000 mg tablet Take 1 tablet (1,000 mg total) by mouth 1 (one) time each day. Active glucosamine HCl/chondroitin marvin (GLUCOSAMINE-CH ONDROITIN ORAL) Take 1 tablet by mouth 3 (three) times a day. Active hydrocortisone 2.5 % cream Apply topically 2 (two) times a day if needed for irritation for up to 14 days. 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 Hematology Oncology [address] [place] [address] Glen Diaz, Malignant neoplasm of central portion of left breast in female, estrogen receptor positive (CMS/HCC V24, CMS/HCC V28) (Primary Dx) 07/25/2024 Telephone [facility] [address] [place] [address] Mike Ellison PA from Last 3 Months Surgical History Surgery Date Site/Laterality Comments OOPHORECTOMY PROCEDURE:OOPHORECTOMY BREAST LUMPECTOMY 2003 & 2004 PROCEDURE:BREAST LUMPECTOMY SALPINGOOPHORECTOMY PROCEDURE:SALPINGOOPHORECTOMY OTHER SURGICAL HISTORY PROCEDURE:FOOT ARTHRODESIS, MODIFIED [place] Medical History Medical History Date Comments Osteopenia DX:Osteopenia 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 Osteoporosis DX:Osteoporosis BRCA1 gene mutation negative BRCA2 gene mutation negative Family History Medical History Relation Name Comments Diabetes Father Hypertension Father Cancer Father's Sister Diabetes Mother Hypertension Mother Osteoarthritis Mother Cancer Mother's Brother throat Breast cancer Mother's Sister Relation Name Status Comments Father Father's Sister Mother Mother's Brother Mother's Sister Alive Social History Tobacco Use Types Packs/Day Years Used Date Smoking Tobacco: Never Smokeless Tobacco: Never Tobacco Cessation:Counseling Given: Not Answered Alcohol Use Standard Drinks/Week Comments Yes 0 (1 standard drink = 0.6 oz pur e alcohol) Socially Comments No Sex and Gender Information Value Date Recorded Sex Assigned at Female 04/10/2024 9:43 PM EST Legal Sex Female 4:08 PM EST Gender Identity Female 04/10/2024 9:43 PM EST Sexual Orientation Not on file Obstetrics History Last Filed Vital Signs Vital Sign Reading Time Taken Comments Blood Pressure 126/68 10/14/2024 11:00 AM EDT Pulse 80 10/14/2024 11:00 AM EDT Temperature 36.1 C (97 F) 10/14/2024 11:00 AM EDT Respiratory Rate - - Oxygen Saturation 100% 10/14/2024 11:00 AM EDT Inhaled Oxygen Concentration - - Weight 93.3 kg (205 lb 9.6 oz) 10/14/2024 11:00 AM EDT Height 167.6 cm (5' 6 ) 10/14/2024 11:00 AM EDT Body Mass Index 33.18 10/14/2024 11:00 AM EDT Plan of Treatment Upcoming Encounters Date Type Department Care Team (Late st Contact Info) Description 04/28/2025 10:00 AM EST Office Visit [facility] Hematology Oncology [address] [place] [phone] Glen Diazie, DO [address] [place] [address] Health Maintenance Due Date Last Done Comments Pneumococcal Vaccine: 50+ Years (1 of 2 - PCV) 08/08/1982 Cervical Cancer Screening: Pap Smear 08/08/1984 Colorectal Cancer Screening: Colonoscopy 02/24/2022 HIV Screening 02/24/2022 Hepatitis C Screening 02/24/2022 Social Influencers of Health Screening 02/24/2022 COVID-19 Vaccine ( season) 2023 03/06/2023, 03/08/2022, 10/25/2021, Additional history exists Depression Screening 03/20/2024 Influenza Vaccine (#1) 2024 , 03/02/2022, 12/04/2020, Additional history exists DTaP,Tdap,and Td Vaccines (2 - Td or Tdap) 01/03/2026 01/04/2016 Breast Cancer Screening 04/11/2026 04/11/19 25, 04/10/2023, 04/07/2022, Additional history exists Cholesterol Screening (Lipid Panel) 07/02/2027 07/01/2022, 07/01/2022, 07/01/2022, Additional history exists Osteoporosis Screening (Bone Density Screening) 04/10/2033 04/10/2023, 04/05/2021, 03/28/2019, Additional history exists RSV Immunization Adult Patients (1 - 1-dose 75+ series) 08/08/2038 Hepatitis A Vaccines Aged Out 12/16/2016, 09/27/19 17 No longer eligible based on patient's age to complete this topic Hepatitis B Vaccines Completed 06/12/2018, 12/16/2016, 09/26/2016 Zoster Vaccines Completed 05/24/2021, 03/19/2021 HIB Vaccines Aged Out No longer eligi ble based on patient's age to complete this topic HPV Vaccines Aged Out No longer eligi ble based on patient's age to complete this topic IPV Vaccines Aged Out No longer eligi ble based on patient's age to complete this topic MMR Vaccines Aged Out No longer eligi ble based on patient's age to complete this topic Meningococcal ACWY Vaccine Aged Out N o longer eligible based on patient's age to complete this topic Meningococcal B Vaccine Aged Out No l onger eligible based on patient's age to complete this topic RSV Immunization Patients Under 20 months Aged Out No longer eligible based on patient's age to complete this topic Varicella Vaccines Aged Out No longer eligible based on patient's age to complete this topic Procedures Procedure Name Priority Date/Time Associated Diagnosis Comments MG MAMMO DIGITAL SCREENING W MANOJ BILAT Routine 04/11/2024 10:15 AM EST Screening due GIA DEXA AXIAL SKELETON Routine 04/10/2023 11:07 AM EST Other specified disorders of bone density and structure, other site LIPID PANEL Routine 07/01/2022 from Last 3 Months or Most Recently Relevant to Health Maintenance Results * MG Mammo Digital Screening w Manoj bilat (04/11/2024 10:15 AM EST) Anatomical Region Laterality Modality Breast Bilateral Mammography 04/11/2024 12:2 3 PM EST Impressions 04/11/2024 12:31 PM EST No mammographic evidence of new or recurrent malignancy. No suspicious interval change. A negative mammogram in the presence of a clinically suspicious palpable abnormality does not preclude the possibility of malignancy or alter the indications for biopsy. ASSESSMENT: BI-RADS 2: BENIGN RECOMMENDATION(S): 1: Routine screening mammogram BILATERAL in 1 year. -------- FINAL REPORT -------- Dictated By: Serge Huffman Dictated Date: 04/11/2024 12:23 ET Assigned Physician: Serge Huffman Reviewed and Electronically Signed By: Serge Huffman Signed Date: 04/11/2024 12:31 ET Workstation ID: [id number] Transcribed By: Self Edit Transcribed Date: 04/11/2024 12:23 ET Narrative 04/11/2024 12:31 PM EST EXAM: SCREENING MAMMOGRAPHY, BILATERAL HISTORY: SCREENING. Personal history of breast cancer. Prior left lumpectomy 2003 and 2004. Previous mammography report indicates prior excision biopsies right breast yielding benign pathology. Maternal aunt with history of breast cancer. COMPARISON: 04/10/2023, 04/07/2022, 04/05/2021, 04/03/2020 TECHNIQUE: Synthesized CC and MLO projections of each breast. Tomosynthesis of each breast in the CC and MLO projections. ADDITIONAL IMAGING: None Computer-aided detection was employed with the [email or web address] AI 3-D. TISSUE DENSITY: There are scattered areas of fibroglandular density. (BI-RADS category B) FINDINGS: RIGHT BREAST: No suspicious mass. No suspicious calcification. No change in the breast architecture. No additional suspicious right breast findings LEFT BREAST: There is stable architectural distortion, focal asymmetry, skin retraction and dystrophic calcification with surgical clips in the axilla. No additional suspicious left breast findings Procedure Note Serge Huffman MD - 04/11/2024 EXAM: SCREENING MAMMOGRAPHY, BILATERAL HISTORY: SCREENING. Personal history of breast cancer. Prior leftlumpectomy 2003 and 2004. Previous mammography report indicates priorexcision biopsies right breast yielding benign pathology. Maternal aunt with history of breast cancer. COMPARISON: 04/10/2023, 04/07/2022, 04/05/2021, 04/03/2020 TECHNIQUE: Synthesized CC and MLO projections of each breast.Tomosynthesis of each breast in the CC and MLO projections. ADDITIONAL IMAGING: None Computer-aided detection was employed with the [email or web address] AI 3-D. TISSUE DENSITY: There are scattered areas of fibroglandular density.(BI-RADS category B) FINDINGS: RIGHT BREAST: No suspicious mass. No suspicious calcification. No change in the breastarchitecture. No additional suspicious right breast findings LEFT BREAST: There is stable architectural distortion, focal asymmetry, skin retractionand dystrophic calcification with surgical clips in the axilla. Noadditional suspicious left breast findings IMPRESSION: No mammographic evidence of new or recurrent malignancy. No suspicious interval change. A negative mammogram in the presence of a clinically suspicious palpableabnormality does not preclude the possibility of malignancy or alter theindications for biopsy. ASSESSMENT: BI-RADS 2: BENIGN RECOMMENDATION(S): 1: Routine screening mammogram BILATERAL in 1 year. -------- FINAL REPORT -------- Dictated By: Serge Huffman Dictated Date: 04/11/2024 12:23 ET Assigned Physician: Serge Huffman Reviewed and Electronically Signed By: Serge Huffman Signed Date: 04/11/2024 12:31 ET Workstation ID: [id number] Transcribed By: Self Edit Transcribed Date: 04/11/2024 12:23 ET us Glen Diaz DO IMG BI PROCEDURES Fin al Result * GIA DEXA AXIAL SKELETON (04/10/2023 11:07 AM EST) Anatomical Region Laterality Modality Mammography 04/10/2023 10:0 1 AM EST Narrative 04/10/2023 11:07 AM EST [facility] Diagnostic Imaging Department [address] [place] [address] Patient: DAIANA SUBRAMANIAN D.O.B./Age/Sex: 1965 57 - F Unit#: [id number] Location/Status: SPDIMAM/REG CLI [facility] Ordering Physician: GLEN DIAZ Gia Dexa Axial Skeleton - 04/10/231053 Report Status:Signed HISTORY: The patient is a 57-year-old postmenopausal female with clinical concern for metabolic bone disease. FINDINGS: Dual energy x-ray absorptiometry of the lumbar spine and femurs is performed. The mean bone mineral density at L1-2 is 0.933 gm/cm2 which is 80% of that of young normals and 79% of that of age matched controls. This yields a T- score of -1.9 and a Z-score of -2.1 which is diagnostic of osteopenia. The mean bone mineral density of the femurs bilaterally is 0.977 gm/cm2 which is 97% of that of young normals and 91% of that of age matched controls. This yields a T-score of -0.2 and a Z-score of -0.8 and there is therefore no evidence of osteoporosis or osteopenia here. IMPRESSION: 1. Osteopenia. There has been an increase of 9.0% in bone mineral density in the lumbar spine since the prior examination of 04/05/2021. There has been an increase of 6.1% in bone mineral density in the right femur and an increase of 3.5% in bone mineral density in the left femur. 2. FRAX analysis yields a 10-year probability of major osteoporotic fracture of 2.7% and a 10-year probability of hip fracture of 0.1%. Code 65071 Dictating Physician: MICHAEL CANTOR MD Electronically Signed by: MICHAEL CANTOR MD Dic Date/Time: 04/10/23 1105 Sign date/Time: 04/10/23 110 Procedure Note Michael Cantor MD - 11/06/2023 [facility] Diagnostic Imaging Department [address] [place] [address] Patient: DAIAAN SUBRAMANIAN/Age/Sex: 1965 - 57 - F Unit#: [id number] Location/Status: SPDIMAM/REG CLI Mnemonic/Ordering Site: [facility] Ordering Physician: GLEN DIAZ Gia Dexa Axial Skeleton - 04/10/23 - 1054 Report Status:Signed HISTORY: The patient is a 57-year-old postmenopausal female withclinical concern for metabolic bone disease. FINDINGS: Dual energy x-ray absorptiometry of the lumbar spine and femursis performed. The mean bone mineral density at L1-2 is 0.933 gm/cm2 which is80% of that of young normals and 79% of that of age matched controls. This yieldsa T- score of -1.9 and a Z-score of -2.1 which is diagnostic of osteopenia. The mean bone mineral density of the femurs bilaterally is 0.977 gm/wl1wtagd is 97% of that of young normals and 91% of that of age matched controls.This yields a T-score of -0.2 and a Z-score of -0.8 and there is therefore no evidence of osteoporosis or osteopenia here. IMPRESSION: 1. Osteopenia. There has been an increase of 9.0% in bone mineral densityin the lumbar spine since the prior examination of 04/05/2021. There has beenan increase of 6.1% in bone mineral density in the right femur and anincrease of 3.5% in bone mineral density in the left femur. 2. FRAX analysis yields a 10-year probability of major osteoporoticfracture of 2.7% and a 10-year probability of hip fracture of 0.1%. Code 69082 Dictating Physician: MICHAEL CANTOR MD Electronically Signed by: MICHAEL CANTOR MD Dic Date/Time: 04/10/23 1106 Sign date/Time: 04/10/23 110 us Glen Diaz DO IMG BI PROCEDURES Fin al Result * Lipid panel (07/01/2022) LDL/HDL Ratio 0 Comment:Abstracted, No Inter pretation Triglycerides 0 mg/dL Comment:Abstracted, No Inter pretation Cholesterol 0 mg/dL Comment:Abstracted, No Inter pretation HDL 0 mg/dL Comment:Abstracted, No Inter pretation LDL Cholesterol 0 mg/dL Comment:Abstracted, No Inter pretation Blood Venous blood specimen / Unknown Historical Provider LAB BLOOD ORDERABLES Yulisa l Result from Last 3 Months or Most Recently Relevant to Health Maintenance [place] [address] [address] Administrator Relationship Specialty Start Date End Date Mike Ellison PA [address] [place] [phone] PCP - General 08/15/23
--- OUTSIDE RECORDS SUMMARY | 2024-10-24 14:10 | XMS_ITS | Clinical Summary ---
Author Organization [facility] Address [address] [place] [address] Care Team Providers Care Art Gallery Director Name Role Phone Mike Ellison Primary Care Provider + Allergies No known active allergies Medications Medication Sig Dispensed Refills Start Date End Date Status alendronate (FOSAMAX) tablet 70 mg Take 1 tablet (70 mg total) by mouth every 7 days. 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, estrogen receptor positive 04/03/2017 Family History Medical History Relation Name Comments Diabetes Father Hypertension Father Cancer Maternal Uncle throat Diabetes Mother Hypertension Mother Osteoarthritis Mother Cancer Paternal Aunt Relation Name Status Comments Father Maternal Uncle Mother Paternal Aunt Social History Tobacco Use Types Packs/Day Years Used Date Smoking Tobacco: Never Smokeless Tobacco: Never Alcohol Use Standard Drinks/Week Comments Yes 0 (1 standard drink = 0.6 oz pur e alcohol) occasional Sex and Gender Information Value Date Recorded Sex Assigned at Not on file Gender Identity Not on file Sexual Orientation Not on file Job Start Date Occupation Industry Not on file Not on file Not on file Last Filed Vital Signs Vital Sign Reading Time Taken Comments Blood Pressure 112/67 04/19/2023 10:07 AM EST Pulse 72 04/19/2023 10:07 AM EST Temperature 36.7 C (98 F) 04/19/2023 10:07 AM EST Respiratory Rate - - Oxygen Saturation 100% 04/19/2023 10:07 AM EST Inhaled Oxygen Concentration - - Weight 84.4 kg (186 lb) 04/19/2023 10:07 AM EST Height 167.6 cm (5' 6 ) 04/19/2023 10:07 AM EST Body Mass Index 30.02 04/19/2023 10:07 AM EST Plan of Treatment Health Maintenance Due Date Last Done Comments Hepatitis C Screening 1965 COVID-19 Vaccine (#1) 08/08/1968 Pneumococcal Vaccine (1 of 2 - PCV) 08/08/1969 Depression Screening 1975 BMI Counseling 08/08/1981 Preventative Health Evaluation 08/08/1981 Cervical Cancer Screening (Pap Smear) 08/08/1984 Colon Cancer Screening (Colonoscopy) 08/08/2008 Breast Cancer Screening (Mammogram) 08/08/2013 Influenza Vaccine (#1) 2024 , 12/04/2020, 11/27/2019, Additional history exists DTap / Tdap / Td (2 - Td or Tdap) 01/03/2026 01/04/2016 RSV Adult > 60+ Yrs or (1 - 1-dose 75+ series) 08/08/2038 Hepatitis B Vaccines Completed 06/12/2018, 12/16/2016, 09/26/2016 Shingrix-Zoster Vaccine Completed 05/24/2021, 03/19 RSV Ped < 20 months Aged Out No longe r eligible based on patient's age to complete this topic Care Teams Art Gallery Director Relationship Specialty Start Date End Date Mike Ellison PA [facility] [place] [address] PCP - General Physician Pantograph Watcher 04/03/19
[2024-10-24 14:15] VITALS: BMI 30.7
== END 2024-10-24 14:53 | disposition home or self-care (01) ==
LOC: HO.HOS 13:59
PROVIDERS: Visit Provider Physician Assistant
DX: M75.101 Unspecified rotator cuff tear or rupture of right shoulder, not specified as traumatic (principal)
CPT/HCPCS: 20610; 99213

== ENCOUNTER → 2024-10-24 14:00 | Outpatient (BNV) | payer OTHER, SELFPAY | PROVIDERS: Visit Provider Radiology Diagnostic Radiology | DX: M25.711 Osteophyte, right shoulder (principal) | CPT/HCPCS: 73030 ==

== ENCOUNTER 2025-01-27 08:05 | Outpatient (REF) | payer OTHER, SELFPAY ==
--- NOTE | ~2025-01-27 | XR_ITS ---
EXAMINATION: XR HAND, RIGHT CLINICAL INFORMATION: M79.641 - Pain in right hand COMPARISON: None available. TECHNIQUE: PA, lateral, and oblique views of the right hand. FINDINGS: Degenerative cystic change is present in the lunate and capitate. No acute fracture is identified. XR/XR hand RT min 3V IMPRESSION: Unremarkable right hand. Electronically signed by: Jose Kitchen MD 01/27/2025 12:28 PM DANIEL
--- OUTSIDE RECORDS SUMMARY | 2025-01-27 08:14 | XMS_ITS | Clinical Summary ---
Author Organization [facility] Address [address] [place] [address] Phone Care Team Providers Care Sampler Tester Name Role Phone Mike Ellison Primary Care Provider [phone] Allergies No known active allergies Medications alendronate (FOSAMAX) 70 mg tablet Take 1 tablet (70 mg total) by mouth once a week. Active cetirizine (ZyrTEC) 10 mg tablet Active calcium-vits W7-S-D5-mineral s 166.75 mg- 166.75 unit capsule Active [...] receptor positive (CMS/HCC V24, CMS/HCC V28) 11/28/2023 Surgical History Surgery Date Site/Laterality Comments OOPHORECTOMY [...] Care Team (Late st Contact Info) Description 04/16/2025 10:00 AM EST Appointment [facility] Bone Density [address] [place] [address] 04/28/2025 10:00 AM EST Office Visit [facility] Hematology Oncology [address] [place] [phone] Glen Diaz DO [address] [place] [address] Health Maintenance Due Date Last Done Comments Colorectal Cancer Screening: Colonoscopy 1965 Pneumococcal Vaccine: 50+ Years (1 of 2 - PCV) 08/08/1982 Cervical Cancer Screening: Pap Smear 08/08/1984 HIV Screening 02/24/2022 Hepatitis C Screening 02/24/2022 Social Influencers of Health Screening 02/24/2022 Depression Screening 03/20/2024 COVID-19 Vaccine ( season) 2024 03/06/2023, 03/08/2022, 10/25/2021, Additional history exists Influenza Vaccine (#1) 2024 , 03/02/2022, 12/04/2020, Additional history exists DTaP,Tdap,and Td Vaccines (2 - Td or Tdap) 01/03/2026 01/04/2016 Breast Cancer Screening 04/11/2026 04/11/19, 04/10/2023, 04/07/2022, Additional history exists Cholesterol Screening [...] Routine 04/11/2024 10:15 AM EST Screening due [facility] DEXA AXIAL SKELETON Routine 04/10/2023 11:07 AM [...] Signed Date: 04/11/2024 12:31 ET Workstation ID: [id number] Transcribed By: Self Edit Transcribed Date: 04/11/2024 [...] None Computer-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 TISSUE DENSITY: There are scattered [...] None Computer-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 TISSUE DENSITY: There are scattered [...] Signed Date: 04/11/2024 12:31 ET Workstation ID: [id number] Transcribed By: Self Edit Transcribed Date: 04/11/2024 12:23 ET us Glen Diaz DO IMG BI PROCEDURES Fin al Result * [facility] DEXA AXIAL SKELETON (04/10/2023 11:07 AM EST) Anatomical Region Laterality Modality Mammography 04/10/2023 10:0 1 AM EST Narrative 04/10/2023 11:07 AM EST [facility] Diagnostic Imaging Department [address] [place] [address] Patient: DAIANA SUBRAMANIAN D.O.B./Age/Sex: 1965 - 57 - F Unit#: [id number] Location/Status: [facility] Mnemonic[facility] Ordering Physician: GLEN DIAZ [facility] Dexa Axial Skeleton - 04/10/23 - 1054 [...] probability of hip fracture of 0.1%. Code 58188 Dictating Physician: MICHAEL CANTOR MD Electronically Signed by: MICHAEL CANTOR MD Dic Date/Time: 04/10/23 1105 Sign date/Time: 04/10/23 110 Procedure Note Michael Cantor MD - 11/06/2023 [facility] Diagnostic Imaging Department [address] [place] [address] Patient: DAIANA SUBRAMANIAN/Age/Sex: 1965 - 57 - F Unit#: [id number] Location/Status: SPDIMAM/REG CLI Mnemonic/Ordering Site: [facility] Ordering Physician: GLEN DIAZ [facility] Dexa Axial Skeleton - 04/10/23 - 1054 [...] density of the femurs bilaterally is 0.977 gm/wj6sllie is 97% of that of young normals [...] probability of hip fracture of 0.1%. Code 24521 Dictating Physician: MICHAEL CANTOR MD Electronically Signed by: MICHAEL CANTOR MD Dic Date/Time: 04/10/23 1105 Sign date/Time: 04/10/23 1107 Glen Diaz DO IMG BI PROCEDURES Fin al Result * Lipid panel (07/01/2022) LDL/HDL Ratio 0 Comment:Abstracted, No Inter pretation Triglycerides 0 mg/dL Comment:Abstracted, No Inter pretation Cholesterol 0 mg/dL Comment:Abstracted, No Inter pretation HDL 0 mg/dL Comment:Abstracted, No Inter pretation LDL Cholesterol 0 mg/dL Comment:Abstracted, No Inter pretation Blood Venous blood specimen / Unknown us Historical Provider LAB BLOOD ORDERABLES Yulisa l Result from Last 3 Months or Most Recently Relevant to Health Maintenance Insurance [facility] Care Teams Sampler Tester Relationship Specialty Start Date End Date Mike Ellison PA [address] [place] [id number] PCP - General 08/15/23
--- OUTSIDE RECORDS SUMMARY | 2025-01-27 08:14 | XMS_ITS | Clinical Summary ---
Author Organization [facility] Address [address] [place] [address] Care Team Providers Care Foot And Ankle Surgeon Name Role Phone Mike Ellison Primary Care Provider [phone] Source Comments PLEASE NOTE, if this patient is a minor, it may be UNLAWFUL to discuss sensitive information that is contained in these records (such as FAMILY PLANNING, MENTAL HEALTH or SUBSTANCE ABUSE) with the minor patient's parent or other person without the patient's specific authorization.[facility] Allergies Active Allergy Reactions Criticality Noted Date Comments Apples 05/24/2021 Peaches 05/24/2021 Pollen 05/24/2021 Medications calcium-vits G1-C-P7-mineral s 166.75 mg- 166.75 unit cap Acti ve cetirizine (ZYRTEC) 10 mg tablet Active xvfrssrq-ffg-ed iu-IC-oifdze (CENTRUM SILVER WOMEN) 8 mg iron-400 mcg-300 mcg tab Acti ve triamcinolone (KENALOG) 0.1 % ointment Apply 1 Application topically 2 (two) times daily 08/05/19 24 Active clotrimazole-be tamethasone (LOTRISONE) 1-0.05 % creamIndication s:Pruritus of skin Apply topically 2 (two) times daily 15 g 09/05/19 24 Active alendronate (FOSAMAX) 70 mg tabletIndicatio ns:Age-related osteoporosis without current pathological fracture TAKE 1 TABLET BY MOUTH ONE TIME PER WEEK 4 Tablet 01/17/20 25 Active diclofenac sodium (VOLTAREN) 1 % gelIndications: Chronic pain of both knees APPLY 2 G TOPICALLY 2 (TWO) TIMES DAILY. 100 g 2 03/28/19 24 2024 Discontinued(I neffective therapy) alendronate (FOSAMAX) 70 mg tabletIndicatio ns:Age-related osteoporosis without current pathological fracture TAKE 1 TABLET BY MOUTH EVERY 7 DAYS. 12 Tablet 2 05/15/19 25 2024 Discontinued diclofenac sodium (VOLTAREN) [address] tabletIndicatio ns:Acute hip pain, left Take 1 Tablet by mouth 2 (two) times daily for 14 days. 28 Tablet 01/01/20 25 2024 Active Problems Patient Care Coordination No te [...] for years . Annual Mamms, followed by Cemetery Manager. Malignant neoplasm of centra l portion of breast in female, estrogen receptor positive 04/03/2017 Overview (01/03/2019): 03/24/17, Mike Ellison PA-C, noted. - 06/28/18 tested BRCA neg. - 04/03/18, [facility] Oncology report, Jack Sandoval MD, HPI: [...] 04/10/2016 Overview (04/10/2016): Right foot done at [facility] on 03/25/16 History of mammogram 04/10/2016 Overview (04/10/2016): 08-07-15: stable assymetry should return for mammogram cycle with bilat study in 6 months. Prediabetes 01/04/2016 History of abnormal mammogram 02/05/2015 Overview (04/10/2016): [facility] 01/28/15. Questionable 8mm asymmetry in the anterior third of the right breast. F/U recommended in 6 mo. Due 08/03/14 02-12-16: normal mammogram Breast cancer Overview (01/03/2019): 07/29/14, She Jett DNP: Cancer free x 10 years Oncologist Jack Oewn Osteopenia Overview (01/03/2019): [facility] Bone scan 01/28/15- 1.9% 10 year probability of fracture 02/19/18, [facility] Axial skeleton, [facility],Impression: 1. Ostopenia - there has been [...] a 10- yearprobability of hip Fx of0.0%. 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 Not on file Not on file Last Filed Vital Signs Vital Sign Reading Time Taken Comments Blood Pressure 150/81 12/31/2024 1:07 PM EDT Pulse 76 12/31/2024 1:07 PM EDT Temperature 36.8 C (98.2 F) 12/31/2024 1:07 PM EDT Respiratory Rate 19 12/31/2024 1:07 PM EDT Oxygen Saturation 99% 12/31/2024 1:07 PM EDT Inhaled Oxygen Concentration - - Weight 83.5 kg (184 lb) 12/08/2023 11:26 AM EDT Height 167.6 cm (5' 6 ) 12/08/2023 11:26 AM EDT Body Mass Index 29.7 12/08/2023 11:26 AM EDT Plan of Treatment Upcoming Encounters Date Type Department Care Team (Late st Contact Info) Description 01/27/2025 10:00 AM EST Office Visit [facility] [address] [place] [address] Celeste Peres, VINCE [address] [place] [address] Health Maintenance Due Date Last Done Comments Anxiety Screening 1965 HPV Screening (self-collect) [address] Colonography 08/08/2008 Colonoscopy 08/08/2008 Fecal DNA 08/08/2008 Flexible Sigmoidoscopy 08/08/2008 Imm-Pneumococcal 50+ (1 of 1 - PCV) 08/08/2013 Colorectal Cancer Screening 06/12/2020 FIT/gFOBT 06/12/2020 06/12/2018 (Ce bhatt by Outside Provider), 01/04/2016, 11/10/2014 Diabetes Screening 01/29/2024 07/29/2023, 0 07/29/2023, 07/11/2023, Additional history exists Alcohol and Drug Screen 03/20/2024 07/28/19, 07/10/2023, 07/01/2022, Additional history exists Depression Annual Screen 03/20/2024 024, 07/10/2023, 11/27/2019, Additional history exists Annual Wellness (Adult): Indicated (All Coverage) 09/25/2024 09/26/2023, 07/01/2022, 11/27/2019, Additional history exists Epr-IMMIW-71 ( season) 2024 03/06/2023, 03/08/2022, 10/25/2021, Additional history exists Imm-Influenza (#1) 2024 03/06/2023, 1 05/03/2021, 12/04/2020, Additional history exists Breast Cancer Screening (Mammogram) 04/11/2025 04/11/2024, 04/11/2024, 04/10/2023, Additional history exists Hypertension Screening (#1) 12/31/2025 Tobacco Screening 12/31/2025 12/31/2024, 01/05/2017 Imm-DTaP/Tdap/Td (2 - Td or Tdap) 01/03/2026 [...] Conization Discontinued Cervical Cryotherapy Discontinued Colposcopy Discontinued Excision/Leep Discontinued HPV Genotyping Discontinued Vaginal [...] Procedure Name Priority Date/Time Associated Diagnosis Comments OTHER ORDERS SCANNED DOCUMENT 01/09/2025 3:00 AM EDT HISTORIC MAMMOGRAM 04/11/2024 3: 00 AM EST THIN PREP IMAGE PAP + HPV RNA E6/E7 W/RFLX HPV 16, 18/45 Routine 12/08/2023 11:37 AM EDT Screening for HPV (human papillomavirus) HEMOGLOBIN GLYCOSYLATED A1C Routine 07/29/2023 10:16 AM EDT Syncope, unspecified syncope type HISTORIC DEXA SCAN 04/10/2023 3: 00 AM EST LIPID PANEL Routine 07/01/2022 11:06 AM EDT Chronic pain of both knees HEPATITIS A,B,C PANEL Routine 06/14/2018 10:30 AM EDT Routine adult health maintenance from Last 3 Months or Most Recently Relevant to Health Maintenance Results * OTHER ORDERS SCANNED DOCUMENT (01/09/2025 3:00 AM EDT) 01/09/2025 3:00 AM EDT us Mike PATRICK SCAN OTHER ORDERS Final Result * HISTORIC MAMMOGRAM (04/11/2024 3:00 AM EST) 04/11/2024 3:00 AM EST us Mike PATRICK IMG MAMMO Final Result * THIN PREP IMAGE PAP + HPV RNA E6/E7 W/RFLX HPV 16, 18/45 (12/08/2023 11:37 AM EDT) CLINICAL INFORMATION See Note [employer] Comment:Postmenopausal LMP See Note [employer] Comment:NONE GIVEN PREV. PAP See Note [employer] Comment:NONE GIVEN PREV. BX See Note [employer] Comment:NONE GIVEN SOURCE See Note [employer] Comment:Cervix STATEMENT OF ADEQUACY See Note [employer] Comment: Satisfactory for evaluation. Endocervical/transformation zone component present. INTERPRETATION/RESU LT See Note [employer] Comment: Cytology Results: Negative for intraepithelial lesion or malignancy. COMMENT See Note [employer] Comment: This Pap test has been evaluated with computer assisted technology. 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 Cervical sources are required for HPV testing. If a vaginal source from a patient who has had a total hysterectomy with removal of cervix was submitted, please contact the testing laboratory for alternative testing options. For additional information, please refer to http://education.Apparent/faq/WZI698p9 (This link if provided for information/ educational purposes only.) Swab Cervix uteri structure / Unknown 12/08/2023 11:37 AM EDT 12/11/2023 6:14 AM EDT Narrative [facility] - 12/12/2023 11:13 AM EDT EXPLANATORY NOTE: [...] PATHOLOGY AND CYTOLOGY AM BULATORY Final Result Performing Organization Address [facility]/ZIP Co de Phone Number [employer] [address] [address], [employer] [address] [address] * (ABNORMAL) HEMOGLOBIN GLYCOSYLATED A1C (07/29/2023 10:16 AM EDT) HEMOGLOBIN A1C 6.0(H) <5.7 % of total Hgb [employer] [facility] Comment: For someone without known diabetes, a [...] AM EDT 07/29/2023 10:16 AM EDT Narrative [facility] - 08/01/2023 2:54 AM EDT FASTING:YES Katarzyna PATRICK LAB - BLOOD DRAW Final Result Performing Organization Address [facility] Co de Phone Number [employer] [address] [address], [employer] [address] [address] * HISTORIC DEXA SCAN (04/10/2023 3:00 AM EST) 04/10/2023 3:00 AM EST Mike PATRIKC IMG DXA Final Result * (ABNORMAL) LIPID PANEL (07/01/2022 11:06 AM EDT) CHOLESTEROL, TOTAL 220(H) <200 mg/dL [employer] [facility] HDL CHOLESTEROL 76 > OR = 50 mg/dL [employer] TRIGLYCERIDES 56 <150 mg/dL [employer] [facility] LDL-CHOLESTEROL 129(H) 99 mg/dL (calc) [employer] Comment: Reference range: <100 Desirable range <100 mg/dL for primary prevention; <70 mg/dL for patients with CHD or diabetic patients with > or = 2 CHD risk factors. LDL-C is now calculated using the Dionne calculation, which is a validated novel method providing better accuracy than the Friedewald equation in the estimation of LDL-C. Ashok SS et al. FAUSTINA. 2013;310(19): 1326-5490 (http://education.Nostalgia Bingo/faq/XVP787) CHOL/HDLC RATIO 2.9 <5.0 (calc) [employer] NON-HDL CHOLESTEROL 144(H) <130 mg/dL (calc) [employer] [facility] Comment: For patients with diabetes plus 1 major ASCVD risk factor, treating to a non-HDL-C goal of <100 mg/dL (LDL-C of <70 mg/dL) is considered a therapeutic option. Blood Blood / Unknown 07/01/2022 1 1:06 AM EDT 07/01/2022 11:06 AM EDT Vinny Negrete PRINCIPAL TECHNICAL SPECIALIST-C LAB - BLOOD DRAW Final Re sult [employer] [address] [address], [employer] [address] [address] * (ABNORMAL) HEPATITIS A,B,C PANEL (06/14/2018 10:30 AM EDT) HEPATITIS B SURFACE ANTIBODY POSITIVE(A) NEGATIVE [facility] HEPATITIS B SURFACE ANTIGEN NEGATIVE NEGATIVE [facility] Comment: Over the counter supplements containing high doses of biotin may interfere with this assay. If interference is suspected, patients shoud be retested after refraining from biotin supplements for 72 hours. HEPATITIS C VIRUS DIAGNOSTIC NEGATIVE NEGATIVE [facility] HEPATITIS A ANTIBODY TOTAL POSITIVE(A) NEGATIVE [facility] Comment: Over the counter supplements containing high doses of biotin may interfere with this assay. If interference is suspected, patients shoud be retested after refraining from biotin supplements for 72 hours. HEPATITIS B CORE ANTIBODY NEGATIVE NEGATIVE [facility] [employer] [facility] Blood specimen (specimen) Blood / Unknown 06/14/2018 10:30 AM EDT 06/14/2018 11:16 AM EDT Narrative [facility] - 06/14/2018 2:05 PM EDT [employer] [address] Blister Pack Operator - Betty Guaman MD PT ID [id number] ORD# [id number] Mike PATRICK LAB - BLOOD DRAW [place] - [place] [address], from Last 3 Months or Most Recently Relevant to Health Maintenance Insurance [employer] Member Subscriber Plan / Payer (Ef fective 2016-Present) Name:Daiana Rodriguez Relation to Subscriber:Self Name:Daiana Rodriguez Payer ID:[id number] Type:Indemnimention Address: [facility] [address] [place] [address] GENERIC - [employer] Care Teams Foot And Ankle Surgeon Relationship Specialty Start Date End Date Mike Ellison PA PCP - General Internal Medicine 09/23/16
--- OUTSIDE RECORDS SUMMARY | 2025-01-27 08:14 | XMS_ITS | Clinical Summary ---
Author Organization [facility] Address [address] [place] [address] Care Team Providers Care Home Health Scheduler Name Role Phone Mike Ellison Primary Care [...] age to complete this topic Care Teams Home Health Scheduler Relationship Specialty Start Date End Date Mike Ellison PA [facility] [place] [address] PCP - General Physician Automotive Welder 04/03/19
== END 2025-01-27 08:06 | disposition home or self-care (01) ==
LOC: HO.HOSX 08:05
DX: R20.0 Anesthesia of skin (principal); R20.2 Paresthesia of skin; M79.641 Pain in right hand
CPT/HCPCS: 73130; 99212

== ENCOUNTER 2025-01-27 11:30 | Outpatient (AMB) | payer OTHER, SELFPAY ==
--- NOTE | 2025-01-27 11:43 | A.OFFVIS_ITS ---
Intake Visit Reasons: Newprob-Right hand, MF, IF pain Intake Note: Daiana is a 59 year old right hand dominant female who presents today for a New Problem Visit complaining of Right Middle & Right Index Finger Pain. Patient reports since October, she has been experiencing pain, numbness, and tingling. She denies locking and catching. Patient thinks her symptoms were triggered after having a Right shoulder injection at her last visit with DARNELL Marshall. Patient any previous injuries or surgeries of the right hand. No EMG on this patient. Allergies No Known Allergies Allergy (Verified 01/27/25 11:44) HPI HPI Newprob-Right hand, MF, IF pain: Details: Daiana is a 59 year old right hand dominant female who presents today for a New Problem Visit complaining of Right Middle & Right Index Finger Pain. Patient reports since October, she has been experiencing pain, numbness, and tingling. She denies locking and catching. Patient thinks her symptoms were triggered after having a Right shoulder injection at her last visit with DARNELL Marshall. Patient any previous injuries or surgeries of the right hand. Patient has never had an EMG done on the right hand, as she only began to notice her symptoms after right shoulder injection. Patient states that she is concerned that the injection may have damaged the nerve. No other acute complaints or concerns at this time. 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 Good APB muscle firing and good finger cross. Vascular: Capillary refill brisk. ROM: Patient can make a fist and extend all their digits. Skin: No lacerations or abrasions noted. General: No ecchymosis. No erythema or evidence of infection. Results Reviewed Results Reviewed: X-rays obtained in the office today and independently reviewed by me, Gustabo Maher PA-C, demonstrate no fracture or acute bony abnormality of the right hand. Assessment & Plan Assessment & Plan (1) Numbness and tingling of right hand: Code(s): R20.0 - Anesthesia of skin; R20.2 - Paresthesia of skin Category: Medical Plan 1. Numbness, tingling, pain of right hand Symptoms intermittent, daily, worse at night Patient is educated about this condition Patient is educated about the typical treatment course At this time, patient is referred for EMG and nerve conduction study to assess the health of the nerves of the right upper extremity Patient is educated that this will show if there is any nerve issues with the entire right upper extremity, from the wrist all the way to the neck Patient understands this and is amenable to this plan Follow-up after EMG and nerve conduction study for results review and discussion of further treatment options if indicated, sooner with any acute concerns Orders: Orders XR hand RT min 3V 01/27/25 M79.641 - Pain in right hand NE nerve conduction velocity 01/27/25 R20.0 - Anesthesia of skin, R20.2 - Paresthesia of skin NE electromyogram (EMG) 01/27/25 R20.0 - Anesthesia of skin, R20.2 - Paresthesia of skin Coding Level of Care Code Est Pt Level 3 (24089) Diagnoses Numbness and tingling of right hand R20.0; R20.2
== END 2025-01-27 12:05 | disposition home or self-care (01) ==
LOC: HO.HOS 11:31
PROVIDERS: PCP Physician Assistant
DX: R20.0 Anesthesia of skin (principal); R20.2 Paresthesia of skin
CPT/HCPCS: 99213

== ENCOUNTER → 2025-01-27 11:33 | Outpatient (BNV) | payer OTHER, SELFPAY | PROVIDERS: Visit Provider Radiology Diagnostic Radiology | DX: M79.641 Pain in right hand (principal) | CPT/HCPCS: 73130 ==

== ENCOUNTER 2025-02-28 08:48 | Outpatient (REF) | payer OTHER, SELFPAY ==
--- NOTE | ~2025-02-28 | XR_ITS ---
EXAMINATION: XR HIP, LEFT CLINICAL INFORMATION: M25.559 - Pain in unspecified hip COMPARISON: December 28, 2023 TECHNIQUE: AP view pelvis. AP and oblique views, left hip. of the left hip. FINDINGS: Bony pelvis is intact. Mild sclerosis along the articular surface of the acetabulum. Asymmetric joint space narrowing both coxofemoral joints. No acute cortical disruption or malalignment. No lytic or blastic lesions. Prominent transverse processes of L5 vertebra. XR/XR hip LT min 2V IMPRESSION: Mild osteoarthrosis/osteoarthritis, left hip. Electronically signed by: Erickson Lockhart MD 02/28/2025 10:28 AM EST
== END 2025-02-28 08:49 ==
LOC: HO.HOSX 08:48
PROVIDERS: Visit Provider Physician Assistant
DX: G57.02 Lesion of sciatic nerve, left lower limb (principal)
CPT/HCPCS: 73502

== ENCOUNTER 2025-02-28 10:17 | Outpatient (AMB) | payer OTHER, SELFPAY ==
--- NOTE | 2025-02-28 10:18 | A.OFFVIS_ITS ---
Vital Signs 02/28/25 10:31 Height 5 ft 6 in Weight 190 lb BMI 30.7 Intake Visit Reasons: newprob-Left hip pain Intake Note: Daiana is a 59 year old right hand dominant female who presents today for a follow of her left hip pain. Patient reports ongoing pain since since October. She states that she was getting up in the morning and her leg gave out and she fell on her left side, which this happened back in October. Patient states that her pain is on the glutes and it comes around close to the groin area. She notices that her pain is worse when she is standing, laying down and walking. Patient has tried topical cream with minimal relief, and her PCP gave her some oral antiinflammatories with relief. Allergies No Known Allergies Allergy (Verified 02/28/25 10:31) HPI Comments Details: History of Present Illness The patient is a 59-year-old female who presents for evaluation of left hip pain. The pain began in October when her leg gave out while getting out of bed, causing her to fall onto her left side. Initially, for about two weeks, the pain was severe in the morning, requiring her to use a cane to ambulate as she could not bear weight on the leg. She describes the pain as being located deep in the gluteal area and radiating to the lateral aspect of the hip. The pain is exacerbated by standing, lying down, and ambulating, and its severity fluctuates, sometimes reaching 8/10, while at other times being a 1-2/10, but it never fully resolves. For management, she has tried a topical pain cream with minimal relief, and oral diclofenac prescribed by her PCP provided mild relief. She has also seen a chiropractor, which provided some relief through deep manipulation, and has recently started physical therapy. She currently takes Aleve on an as-needed basis for severe pain. 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 Pain Description - Onset: The pain has been present since October after a fall. - Location: The pain is deep in the left gluteal region. - Radiation: The pain radiates to the lateral hip area. - Severity: The pain fluctuates, ranging from 1-2/10 on good days to 8/10 on bad days, but never fully resolves. - Exacerbating factors: Pain is worse with standing, lying down, and ambulating. - Relieving factors: Experiences mild relief with diclofenac and some relief with Aleve and chiropractic manipulation. Results - Imaging: - X-rays of the left hip revealed mild arthritic changes. 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 - She also reports new onset knee pain, which she attributes to an altered gait. Const All systems reviewed & are unremarkable except as noted in HPI and below Physical Exam Exam Exam: Physical Exam Left hip: Full hip ROM in all planes with no reported groin pain. Gluteal pain with internal rotation. No tenderness to palpation over the greater trochanteric bursa. 5/5 strength with resisted hip flexion, knee extension, abduction, and abduction. Able to perform straight leg raise. NVI. Vital Signs: BMI result Body Mass Index 30.7 Assessment & Plan Assessment & Plan (1) Piriformis syndrome of left side: Code(s): G57.02 - Lesion of sciatic nerve, left lower limb Category: Medical Plan 1. Piriformis Syndrome The patient's symptoms and physical exam findings, specifically the location of her pain and the absence of groin pain with internal and external rotation, are not indicative of intra-articular hip pathology but are consistent with piriformis syndrome. X-rays of the hip showed only mild arthritic changes. The plan is to continue with conservative management. The patient will continue physical therapy for a solid six weeks and perform gentle stretching exercises as demonstrated. She is advised to continue taking Aleve as needed for pain and to avoid high-impact activities. A note for work was provided to request parking accommodations for two months to reduce her walking distance. She will follow up PRN, sooner if needed. X-rays of the left hip which were obtained while in the office today and were reviewed by me, Bernadine Alfonso PA-C, revealed mild arthritic changes. No acute fracture or dislocation. Consent Patient was informed and verbally consented to the use of an ambient scribe for clinic note documentation during this visit. Orders: Orders XR hip LT min 2V Today M25.559 - Pain in unspecified hip Coding Level of Care Code Est Pt Level 3 (86827) Add On Problem Visit Only Diagnoses Piriformis syndrome of left side G57.02
[2025-02-28 10:31] VITALS: BMI 30.7
== END 2025-02-28 10:54 | disposition home or self-care (01) ==
LOC: HO.HOS 10:17
PROVIDERS: PCP Physician Assistant; Visit Provider Physician Assistant
DX: G57.02 Lesion of sciatic nerve, left lower limb (principal)
CPT/HCPCS: 99213

== ENCOUNTER → 2025-02-28 10:18 | Outpatient (BNV) | payer OTHER, SELFPAY | PROVIDERS: Visit Provider Radiology Diagnostic Radiology | DX: M16.12 Unilateral primary osteoarthritis, left hip (principal) | CPT/HCPCS: 73502 ==